=== PATIENT | female | born 1975 | race Caucasian/White ===

== ENCOUNTER 2023-04-16 02:59 | Day surgery (SDC) | payer BC, SELFPAY ==
[2023-04-02 14:02] VITALS: BMI 25.0
[2023-04-16 07:51] VITALS: BP 110/73; PULSE 69; RESP 18; TEMP 36.7; O2SAT 99
[2023-04-16] MEDS: LACTATED RINGERS 1,000 ML 150 ML IV CONT (08:02)
--- NOTE | 2023-04-16 08:34 | WPDANESEPPF ---
Anes - Initial Pre Proc Eval Procedure: Operation Date: 04/16/23 09:00 Proposed Procedures p Screening Colonoscopy - Martín Fortune MD Date/Time: 04/16/23 08:34 Surgeon: Martín Fortune MD Pre Op Diagnosis: neoplasm screening Patient Data Age: 47 Gender: F Height: 1.68 m Weight: 70.4 kg Last Vital Signs Temp 98.1 F 04/16/23 07:51 Pulse 69 04/16/23 07:51 Resp 18 04/16/23 07:51 BP 110/73 04/16/23 07:51 Pulse Ox 99 04/16/23 07:51 O2 Del Method Room Air 04/16/23 07:51 Allergies Allergy/AdvReac Type Severity Reaction Status Date / Time nuts Allergy Intermediate Hives Uncoded 04/16/23 07:50 Home Medications Medication Instructions Recorded Confirmed Type famotidine 20 mg tablet 20 mg PO DAILY 05/21/22 04/02/23 History desogestrel 0.15 mg-ethinyl 1 tablet PO DAILY #90 tabs 03/04/23 04/02/23 Rx estradiol 0.03 mg tablet (Enskyce) mecobalamin (vitamin B12) 1,000 1,000 mcg PO DAILY 03/04/23 04/02/23 History mcg chewable tablet calcium 600 mg capsule 600 mg PO DAILY 04/02/23 04/02/23 History cholecalciferol (vitamin D3) 25 25 mcg PO DAILY 04/02/23 04/02/23 History mcg (1,000 unit) tablet (Vitamin D3) levothyroxine 25 mcg tablet 25 mcg PO DAILY 04/02/23 04/02/23 History Patient hx anesthesia problems: none Family hx anesthesia problems: none Results Review: All pre-operative results and documents have been reviewed as part of the pre-operative evaluation. [facility] Past Medical History Medical History Anal fistula Autoimmune thyroiditis Contact dermatitis HPV (human papilloma virus) infection 2013 Idiopathic urticaria Nontoxic single thyroid nodule 2014 u/s no nodule Family History Family History Father Diabetes mellitus Depression Hypertension Acute myocardial infarction Family history of malignant melanoma Family history of coronary artery disease Sibling Depression Mother Hypertension Family history of diabetes mellitus in first degree relative Family history of malignant melanoma Family history of heart disease in male family member before age 55 Diabetes mellitus Other Family history of cardiovascular disease Family history of malignant neoplasm Social History Social History (Updated 03/04/23 @ 08:32 by Ingrid Ortega MA) Social History: Caffeine- coffee, soda Smoking packs per day: 1 Smoking cigarettes per day: 20.0 Years smoked: 26 Smoking pack-years: 26.00 Smoking status: Former smoker Tobacco type: cigarettes Smoking end date: 12/28/19 Alcohol intake: never Substance use type: does not use Lack of Transportation: No Lack of Food: Never True Current Housing: I Have Housing Concerned About Future Housing: No Difficulty Paying Gas/Electric Bills: No Difficulty Paying for Meds: No Currently Unemployed: No Education: Trade/Vocational Certificate Difficulty w/ Childcare or Family Care: No Living arrangements: with family Spiritual care concerns: No Anes - Eval Final PreProcedure Day of Procedure 04/16/23 08:34 Patient weight: normal Heart: regular rate and rhythm Lungs: clear to auscultation Airway: Mallampati scale class II Neurological: alert and oriented Last oral intake: >/= 8 hours ASA classification: II Emergent: no Anesthetic plan: proceed Anesthesia type and monitoring: general GIVS and standard monitoring Results Review: All pre-operative results and documents have been reviewed as part of the pre-operative evaluation. Informed Consent: The patient's anesthetic plan and its attendant risks and benefits were discussed with the patient/family/POA. Questions were solicited and answers provided to the satisfaction of the patient/family/POA.
--- NOTE | 2023-04-16 08:37 | PM.HPGS ---
History of Present Illness History of Present Illness Consent: Risks, benefits, and alternatives have been discussed and questions answered. Patient agrees to proceed with procedure. Chief complaint: neoplasm screening Narrative: Harini Mobley is a 47 year old female here for first screening colonoscopy Review of Systems Constitutional: Constitutional: Denies headache(s) and Denies weakness Eyes: Eyes: Denies blurry vision ENT: Reports Normal hearing present, Denies headache(s) and Denies neck pain Cardiovascular: Cardiovascular: Denies chest pain and Denies dyspnea Respiratory: Respiratory: Denies dyspnea Gastrointestinal: Gastrointestinal: Reports no additional gastrointestinal complaints Genitourinary: Genitourinary: Denies dysuria Musculoskeletal: Musculoskeletal: Denies neck pain Integumentary/Breasts: Skin/Breast: Denies dry skin Neurologic: Reports Normal hearing present, Denies headache(s) and Denies weakness Psychiatric: Psychiatric: Denies anxiety Endocrine: Endocrine: Denies change in body appearance Hematologic/Lymphatic: Hematologic/Lymphatic: Denies easy bleeding Allergic/Immunologic: Allergic/Immunologic: Denies urticaria PMFSH Past Medical History Medical History Anal fistula Autoimmune thyroiditis Contact dermatitis HPV (human papilloma virus) infection 2013 Idiopathic urticaria Nontoxic single thyroid nodule 2014/s no nodule Family History Family History Father Diabetes mellitus Depression Hypertension Acute myocardial infarction Family history of malignant melanoma Family history of coronary artery disease Sibling Depression Mother Hypertension Family history of diabetes mellitus in first degree relative Family history of malignant melanoma Family history of heart disease in male family member before age 55 Diabetes mellitus Other Family history of cardiovascular disease Family history of malignant neoplasm Social History Social History (Updated 03/04/23 @ 08:32 by Ingrid Ortega MA) Social History: Caffeine- coffee, soda Smoking packs per day: 1 Smoking cigarettes per day: 20.0 Years smoked: 26 Smoking pack-years: 26.00 Smoking status: Former smoker Tobacco type: cigarettes Smoking end date: 12/28/19 Alcohol intake: never Substance use type: does not use Lack of Transportation: No Lack of Food: Never True Current Housing: I Have Housing Concerned About Future Housing: No Difficulty Paying Gas/Electric Bills: No Difficulty Paying for Meds: No Currently Unemployed: No Education: Trade/Vocational Certificate Difficulty w/ Childcare or Family Care: No Living arrangements: with family Spiritual care concerns: No Meds Home Medications and Allergies Home Medications Medication Instructions Recorded Confirmed Type famotidine 20 mg tablet 20 mg PO DAILY 05/21/22 04/02/23 History desogestrel 0.15 mg-ethinyl 1 tablet PO DAILY #90 tabs 03/04/23 04/02/23 Rx estradiol 0.03 mg tablet (Enskyce) mecobalamin (vitamin B12) 1,000 1,000 mcg PO DAILY 03/04/23 04/02/23 History mcg chewable tablet calcium 600 mg capsule 600 mg PO DAILY 04/02/23 04/02/23 History cholecalciferol (vitamin D3) 25 25 mcg PO DAILY 04/02/23 04/02/23 History mcg (1,000 unit) tablet (Vitamin D3) levothyroxine 25 mcg tablet 25 mcg PO DAILY 04/02/23 04/02/23 History Allergies Allergy/AdvReac Type Severity Reaction Status Date / Time nuts Allergy Intermediate Hives Uncoded 04/16/23 07:50 Vital Signs Vital Signs - 24 hr 04/16/23 07:51 Temperature 98.1 F Pulse Rate 69 Respiratory Rate 18 Blood Pressure 110/73 Pulse Oximetry 99 Oxygen Delivery Room Air Exam Const: General: comfortable and no acute distress HENMT: Face/Nose/Sinus: Normal nares present Eyes: General: appearance duc
[2023-04-16 09:03] VITALS: BP 128/108; PULSE 63; RESP 26; O2SAT 99
[2023-04-16 09:13] VITALS: BP 106/62; PULSE 66; RESP 25; O2SAT 100
[2023-04-16 09:23] VITALS: BP 121/68; PULSE 55; RESP 16; O2SAT 100
== END 2023-04-16 09:29 | disposition home or self-care (01) ==
PROVIDERS: PCP Family Medicine; Visit Provider Internal Medicine Gastroenterology
PROC: 0DJD8ZZ Inspection of Lower Intestinal Tract, Via Natural or Artificial Opening Endoscopic (ICD-10-PCS; CPT 45378; principal; 2023-04-16 09:00)
DX: Z12.11 Encounter for screening for malignant neoplasm of colon (principal); D12.0 Benign neoplasm of cecum; K63.5 Polyp of colon; K64.8 Other hemorrhoids; E06.3 Autoimmune thyroiditis; Z87.891 Personal history of nicotine dependence
CPT/HCPCS: 45385; 88305; J7120

== ENCOUNTER 2024-12-16 10:43 | Outpatient (CLI) | payer BC, SELFPAY ==
--- NOTE | ~2024-12-16 | US_ITS ---
EXAMINATION: US thyroid DATE: 12/16/2024 11:02 INDICATION: Nontoxic goiter TECHNIQUE: Multiple ultrasound images of the thyroid were obtained. COMPARISON: None. FINDINGS: The right thyroid lobe measures 6.7 x 2.6 x 2.2 cm. The left thyroid lobe measures 4.9 x 2.3 x 2.0 c m. 1.1 cm solid hypoechoic nodule with ill-defined margins and without echogenic foci in the superio r left thyroid lobe. (TI-RADS 4, moderately suspicious , FNA if >=1.5 cm, annual followup is >=1 cm). There is a second 1.5 cm similar-appearing solid hypoechoic nodule in the mid left thyroid lobe but which is taller than wide (TI-RADS 5, highly suspicious , FNA if >=1.0 cm, annual followup is >0.5 cm ). There are a couple 2.0 cm wider than tall solid hypoechoic TI RADS 4 nodules with smooth to ill-de fined margins and without echogenic foci of in the superior and medial right thyroid lobe. There is a more caudal 2.4 x 2.4 x 1.7 cm TI RADS 4 nodule with similar imaging features in the medial inferior right thyroid lobe. IMPRESSION: 1. Multinodular goiter. Recommend ultrasound-guided fine-needle aspiration of the 1.5 cm TI RADS 5 no dules in the left thyroid lobe and the 2.4 cm Ti RADS 4 nodule in the right thyroid lobe. Reviewed, dictated and finalized at location A. IMPRESSION: 1. Multinodular goiter. Recommend ultrasound-guided fine-needle aspiration of t he 1.5 cm TI RADS 5 nodules in the left thyroid lobe and the 2.4 cm Ti RADS 4 n odule in the right thyroid lobe.
== END 2024-12-16 10:44 | disposition home or self-care (01) ==
LOC: MICIMG 10:43
PROVIDERS: PCP Family Medicine; Visit Provider Family Medicine
DX: E04.2 Nontoxic multinodular goiter (principal)
CPT/HCPCS: 76536

== ENCOUNTER 2025-05-04 12:16 | Outpatient (CLI) | payer BC, SELFPAY ==
--- NOTE | ~2025-05-04 | MM_ITS ---
EXAMINATION: MM screening andi BI w hugo HISTORY: Screening TECHNIQUE: Craniocaudal and mediolateral oblique 3-D tomosynthesis images were obtained and synthetic 2-D images were generated. CAD analysis was submitted and interpreted. COMPARISON: 03/11/2017 BREAST PARENCHYMAL COMPOSITION: There are scattered areas of fibroglandular density. FINDINGS: There is no evidence of suspicious mass, calcification, or architectural distortion to suggest malignancy in either breast. IMPRESSION: 1. No mammographic evidence of malignancy. 2. Recommend routine screening mammography in one year. BI-RADS Category 1: Negative Reviewed, dictated and finalized at location B.
== END 2025-05-04 12:17 | disposition home or self-care (01) ==
PROVIDERS: PCP Family Medicine; Visit Provider Family Medicine
DX: Z12.31 Encounter for screening mammogram for malignant neoplasm of breast (principal)
CPT/HCPCS: 77063; 77067

== ENCOUNTER 2025-06-04 07:52 | Outpatient (CLI) | payer BC, SELFPAY ==
--- NOTE | 2025-06-04 08:00 | ECG_ITS ---
Test Date: 2025-06-04 08:11:49 Measurements Intervals [place] Rate: 68 P: 69 [place]: 179 QRS: 88 QRSD: 81 T: 55 QT: 389 QTc: 416 Interpretive Statements SINUS RHYTHM LOW QRS VOLTAGE IN PRECORDIAL LEADS Electronically Signed On 06-04-2025 10:04:36 CONTENT STRATEGY LEAD by Cameron Luu D.O
--- OUTSIDE RECORDS SUMMARY | 2025-06-04 08:03 | XMS_ITS | Encounter Summary ---
Author Organization [facility] Address 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
--- OUTSIDE RECORDS SUMMARY | 2025-06-04 08:03 | XMS_ITS | Clinical Summary ---
Author Organization [facility] Address [address] 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
== END 2025-06-04 07:53 | disposition home or self-care (01) ==
LOC: ANHSURGERY 07:55
PROVIDERS: PCP Family Medicine; Visit Provider Otolaryngology
DX: Z51.81 Encounter for therapeutic drug level monitoring (principal); Z87.891 Personal history of nicotine dependence
CPT/HCPCS: 93005

== ENCOUNTER 2025-06-15 01:33 | Day surgery (SDC) | payer BC, SELFPAY ==
[2025-06-02 11:33] VITALS: BMI 27.4
--- NOTE | 2025-06-02 13:04 | SUR.PREOP ---
[facility] has started construction of its new state of the art ER which will open Spring 2026. With this, we anticipate parking may be a challenge for some our surgical patients and families. Parking spaces are limited but are available for all Surgical, obstetrics, and ER patients sharing this lot. If you arrive and find you are having a hard time finding a parking space, please note that we understand the challenges, please drive around the hospital and park near Hospital Entrance 1. When you enter this entrance, you can ask a volunteer to direct or take you back to the surgical waiting area to check in. We appreciate everyone?s understanding of these expected challenges while we build for your future. Report to the Outpatient Waiting Room, entrance under the green pavilion located off [address], at time _6AM_ on date _06/15/25_. Planned Procedure Time:_730AM_.? Time changes happen often and if your time is changed the preop area will call you the afternoon before. - You and your visitor will be asked to self-screen and do not enter if you have any COVID symptoms. Please call surgeon if you need to reschedule. - A mask is optional within the hospital at this time. Patients may have clear liquids (water, carbonated beverages, clear teas, apple juice) until 3 hours prior to surgery with a maximum of 20 ounces. - No food from midnight until time of surgery and no smoking, or chewing tobacco (or any form of nicotine). No chewing gum, candy or mints. Take only the following medications with a SIP of water on the morning of surgery: __levothyroxine__ DO NOT STOP ANY OF YOUR OTHER PRESCRIPTION MEDICATIONS PRIOR TO SURGERY EXCEPT THE FOLLOWING Hold all vitamins and supplements for 3 days per anesthesiologist. Medications to discontinue per physician __none___ Date to take last dose__06/11/25___ Please no make-up, nail macedonian, hairspray, perfume, deodorant, or body powder the day of surgery.? No jewelry (including any body piercings) or valuables the day of surgery, leave them at home.? Please take a shower or bath the night before, or the morning of, surgery with an antibacterial soap.? Wear comfortable, loose fitting clothing.? . - Jewelry must be removed prior to entering the operating room.? Rings and piercings that are not removed may be cut off. - The hospital will not accept responsibility for valuables.? - Please leave all valuables, including medications, at home the day of surgery. If you are going home after surgery, a licensed taxi driver must drive you home.? - NO public transportation without another adult if you receive anesthesia. - We recommend that an adult stay with you for 24 hours following discharge. - We also recommend that you do not drive, make important decision, drink alcoholic beverages, or take any drugs that were not prescribed by your health care provider for at least 24 hours after your discharge time. Follow any additional instructions given to you from your surgeon. Telephone instructions given to _Gustavoy__and asked if any additional questions and then verbalized understanding. Patient advised to call surgeon office or pre surgery nurse liaison [phone] if any additional questions.
[2025-06-15] VITALS (13 sets, daily range): BP systolic 118–151; BP diastolic 56–93; PULSE 59–81; RESP 10–20; TEMP 36.2–36.6; O2SAT 96–100
--- OUTSIDE RECORDS SUMMARY | 2025-06-15 03:01 | XMS_ITS | Encounter Summary ---
Author Organization [facility] Address 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
--- OUTSIDE RECORDS SUMMARY | 2025-06-15 03:02 | XMS_ITS | Clinical Summary ---
Author Organization [facility] Address [address] 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
--- NOTE | 2025-06-15 06:59 | WPDANESEPPF ---
Anes - Initial Pre Proc Eval Procedure: Operation Date: 06/15/25 08:30 Proposed Procedures p Total Thyroidectomy with Nerve Monitoring - Jc Le MD Date/Time: 06/15/25 06:59 Surgeon: Jc Le MD Pre Op Diagnosis: hypothyroidism,non toxic multi nodular goiter Patient Data Age: 50 Gender: F Height: 1.68 m Weight: 77.2 kg Allergies Allergy/AdvReac Type Severity Reaction Status Date / Time tree nut Allergy Severe Hives Verified 06/15/25 07:23 Home Medications ?Medication ?Instructions ?Recorded ?Confirmed ?Type famotidine 20 mg tablet 20 mg PO DAILY 05/21/22 06/15/25 History mecobalamin (vitamin B12) 1,000 1,000 mcg PO DAILY 03/04/23 06/15/25 History mcg chewable tablet calcium 600 mg capsule 600 mg PO DAILY 04/02/23 06/15/25 History cholecalciferol (vitamin D3) 25 50 mcg PO DAILY 01/28/24 06/15/25 History mcg (1,000 unit) tablet (Vitamin D3) fluoride (sodium) 1.1 % dental 1 applic PO HS 11/11/24 06/15/25 History paste (PreviDent 5000 Booster Plus) lysine 1,000 mg tablet 1,000 mg PO DAILY 11/11/24 06/15/25 History levothyroxine 100 mcg tablet 100 mcg PO DAILY #30 tabs 03/04/25 06/15/25 Rx (Synthroid) roflumilast 0.15 % topical cream 1 applic topical DAILY PRN 06/02/25 06/02/25 History (Zoryve) dermatitis Patient hx anesthesia problems: none Family hx anesthesia problems: none Results Review: All pre-operative results and documents have been reviewed as part of the pre-operative evaluation. [facility] Past Medical History Medical History (Updated 03/04/25 @ 14:31 by cJ Le MD) Hypothyroidism Nontoxic single thyroid nodule 2014 u/s no nodule Shingles Contact dermatitis Anal fistula Idiopathic urticaria HPV (human papilloma virus) infection 2014 Autoimmune thyroiditis Family History Family History (Reviewed 03/04/25 @ 13:09 by Praveena Medina [facility]) Father Diabetes mellitus Depression Hypertension Acute myocardial infarction Family history of malignant melanoma Family history of coronary artery disease Sibling Depression Mother Hypertension Family history of diabetes mellitus in first degree relative Family history of malignant melanoma Family history of heart disease in male family member before age 55 Diabetes mellitus Other Family history of cardiovascular disease Family history of malignant neoplasm Social History Social History (Reviewed 03/04/25 @ 13:09 by Praveena Medina [facility]) Social History: Caffeine- coffee, soda Smoking packs per day: 1 Smoking cigarettes per day: 20.0 Years smoked: 26 Smoking pack-years: 26.00 Smoking status: Former smoker Tobacco type: cigarettes Smoking end date: 01/30/24 Alcohol intake: current Alcohol use details: rarely Substance use: never Substance use type: does not use Do You Feel Safe in your Home?: Yes Lack of Transportation: No Lack of Food: Never True Current Housing: I Have Housing Concerned About Future Housing: No Difficulty Paying Gas/Electric Bills: No Difficulty Paying for Meds: No Currently Unemployed: No Education: Trade/Vocational Certificate Difficulty w/ Childcare or Family Care: No Living arrangements: with family Spiritual care concerns: No Anes - Eval Final PreProcedure Day of Procedure 06/15/25 06:59 Patient weight: overweight Heart: regular rate and rhythm Lungs: clear to auscultation Airway: Mallampati scale class III Neurological: alert and oriented Last oral intake: >/= 8 hours ASA classification: II Emergent: no Anesthetic plan: proceed Anesthesia type and monitoring: general ETT and standard monitoring Results Review: All pre-operative results and documents have been reviewed as part of the pre-operative evaluation. Informed Consent: The patient's anesthetic plan and its attendant risks and benefits were discussed with the patient/family/POA. Questions were solicited and answers provided to the satisfaction of the patient/family/POA.
[2025-06-15] MEDS: LACTATED RINGERS 1,000 ML 30 ML IV CONT (07:00)
[2025-06-15] MEDS: ACETAMINOPHEN 500 MG TABLET 1000 MG PO ×2 (07:37→20:14)
[2025-06-15 07:43] LABS: BEDSIDEPREGUCG Negative (Negative)
--- NOTE | 2025-06-15 08:31 | PM.IMHP ---
H&P: HPI History of Present Illness Date/Time: 06/15/25 08:31 Chief Complaint: Multinodular goiter Narrative: Patient presents with many year Hx of enlarging goiter. This causes some fullness and anterior neck discomfort with some associated dysphagia. She has bilateral concerning thyroid nodules that have been biopsied showing AUS bilaterally. She has a Hx of hypothyroidism and is on synthroid 100mcg daily. Due to the compressive symptoms and due to her concern for thyroid malignancy. She has elected to proceed with total thyroidectomy. She presents for this today. Review of Systems Review of Systems: All systems reviewed & are unremarkable except as noted in HPI and below PMFSH Past Medical History Medical History (Updated 03/04/25 @ 14:31 by Jc Le MD) Hypothyroidism Nontoxic single thyroid nodule 2014 u/s no nodule Shingles Contact dermatitis Anal fistula Idiopathic urticaria HPV (human papilloma virus) infection 2014 Autoimmune thyroiditis Family History Family History Father Diabetes mellitus Depression Hypertension Acute myocardial infarction Family history of malignant melanoma Family history of coronary artery disease Sibling Depression Mother Hypertension Family history of diabetes mellitus in first degree relative Family history of malignant melanoma Family history of heart disease in male family member before age 55 Diabetes mellitus Other Family history of cardiovascular disease Family history of malignant neoplasm Social History Social History Social History: Caffeine- coffee, soda Smoking packs per day: 1 Smoking cigarettes per day: 20.0 Years smoked: 26 Smoking pack-years: 26.00 Smoking status: Former smoker Tobacco type: cigarettes Smoking end date: 01/30/24 Alcohol intake: current Alcohol use details: rarely Substance use: never Substance use type: does not use Do You Feel Safe in your Home?: Yes Lack of Transportation: No Lack of Food: Never True Current Housing: I Have Housing Concerned About Future Housing: No Difficulty Paying Gas/Electric Bills: No Difficulty Paying for Meds: No Currently Unemployed: No Education: Trade/Vocational Certificate Difficulty w/ Childcare or Family Care: No Living arrangements: with family Spiritual care concerns: No Meds Home Medications and Allergies Home Medications ?Medication ?Instructions ?Recorded ?Confirmed ?Type famotidine 20 mg tablet 20 mg PO DAILY 05/21/22 06/15/25 History mecobalamin (vitamin B12) 1,000 1,000 mcg PO DAILY 03/04/23 06/15/25 History mcg chewable tablet calcium 600 mg capsule 600 mg PO DAILY 04/02/23 06/15/25 History cholecalciferol (vitamin D3) 25 50 mcg PO DAILY 01/28/24 06/15/25 History mcg (1,000 unit) tablet (Vitamin D3) fluoride (sodium) 1.1 % dental 1 applic PO HS 11/11/24 06/15/25 History paste (PreviDent 5000 Booster Plus) lysine 1,000 mg tablet 1,000 mg PO DAILY 11/11/24 06/15/25 History levothyroxine 100 mcg tablet 100 mcg PO DAILY #30 tabs 03/04/25 06/15/25 Rx (Synthroid) roflumilast 0.15 % topical cream 1 applic topical DAILY PRN 06/02/25 06/02/25 History (Zoryve) dermatitis Allergies Allergy/AdvReac Type Severity Reaction Status Date / Time tree nut Allergy Severe Hives Verified 06/15/25 07:23 Vital Signs Vital Signs - 24 hr 06/15/25 06:38 Temperature 36.2 C L Pulse Rate 59 L Respiratory Rate 18 Blood Pressure 118/56 L Pulse Oximetry 97 Oxygen Delivery Room Air Exam Narrative: General: Well developed, well nourished. No apparent distress. Voice strong. Head: Normocephalic, atraumatic. Eyes: Sclerae and conjunctivae clear. Pupils equal and round. Full extraocular motility. Ears: Normal pinnae. Canals clear. Tympanic membranes intact. Middle ear spaces well aerated. Nose: Nasal dorsum is straight. No drainage or crusting at nares. Normal mucosa. Oral Cavity / Oropharynx: Moist mucous membranes. No suspicious lesions. Posterior pharynx is clear without drainage. Neck: Supple, nontender. Large goiter. Lungs: Respirations unlabored. Cardiovascular: Extremities warm and well perfused. Neurologic: Alert, oriented. Moves all extremities. Facial sensation intact to light touch. Face symmetric. Palate elevates symmetrically. Tongue midline. Assessment and Plan Assessment and plan (1) Nontoxic multinodular goiter: Code(s): E04.2 - Nontoxic multinodular goiter Status: Acute Plan OR today for total thyroidectomy. The risks, benefits, and alternatives to surgery were discussed. The risks of pain, bleeding, infection, scarring, no improvement in symptoms, worsening symptoms, recurrent symptoms, hematoma, seroma, poor wound healing, injury to the recurrent laryngeal nerves, injury to the superior laryngeal nerves, temporary or permanent voice changes, airway compromise, temporary or permanent hypocalcemia, and the necessity for thyroid hormone replacement were all reviewed. The patient expressed understanding and wishes to proceed with surgery.
--- NOTE | 2025-06-15 08:35 | WPDHPUPDATE1 ---
History and Physical Update Update Date/Time: 06/15/25 08:35 History and Physical has been reviewed, including an updated exam of the patient. There are NO changes in the patient's condition. Risks, benefits, and alternatives have been discussed and questions answered. Patient agrees to proceed with procedure.
[2025-06-15] MEDS: LIDO 1%/EPINEPHRINE 1:100,000 20 ML VIAL INFILTRATE (09:28)
--- NOTE | 2025-06-15 12:18 | S_PTH ---
PATIENT: Harini Mobley LOC: [facility] U#:[id number] AGE/SX: 50/F ROOM: RE06/15/[address]: Jc Le MD : 1975 BED: DIS: 06/16/2025 SPEC #: [id number] RECD: 06/15/25 12:26 STATUS: [place] REQ #: [id number] TJ: 06/15/25 12:[address]: Jc Le DEPT: [facility] Surgical RECD BY: Adolfo Draper ENTERED: 06/15/25 12:26 SP TYPE: Surgical OTHR DR: Apryl Mar MD Tissues: A - Frozen Section B - Lymph Node C - Thyroid Resection FSA - Frozen Section Procedures: Hematoxylin and Eosin Stain Frozen Section Gross and Microscopic Level 4 Gross and Microscopic Level 5
--- NOTE | 2025-06-15 12:25 | SUR.OPER ---
Left Inferior Parathyroid Candidate for Frozen Section given to YOJANA Hernandez at 1221; David gave specimen to Adolfo at 1225
--- NOTE | 2025-06-15 13:56 | W.PM.PROC2 ---
Procedure Note - Detailed Date of Procedure 06/19/25 Pre-op Diagnosis non toxic multi nodular goiter Post-op Diagnosis Same Procedure Performed Total thyroidectomy Parathyroid reimplantation, same incision Surgeon Jc Le MD Anesthesia General Description of Procedure Patient was identified in the preoperative area, and informed written consent was obtained. The patient was transported to the operating room and placed supine on the operating room table. The anesthesiology service induced general anesthesia and intubated the patient with a NIM tube. The laryngeal nerve monitoring system was set up and was confirmed to be functioning properly. The patient was then positioned, prepped, and draped. A surgical time-out was conducted confirming the patient's identity and the procedure to be performed. A 5cm incision was planned 1cm below the cricoid cartilage in a natural skin crease. 1% lidocaine with epinephrine was injected. The skin was incised with a 15 blade. The incision was carried through the subcutaneous fat and platysma. Subplatysmal flaps were raised superiorly to the level of the thyroid cartilage and inferiorly to the sternal notch. The bilateral sternocleidomastoid muscles were identified laterally. The strap muscles were identified and divided in the midline. Attention was turned to the right thyroid lobe. The strap muscles were lifted off the thyroid. The thyroid was retracted medially and the middle thyroid vein was identified and ligated. The thyroid was then retracted inferiorly to expose the superior pole. Joll's space was bluntly opened. Branches of the superior thyroid artery and veins were ligated using silk ties as close to the thyroid capsule as possible. The external branch of the superior laryngeal nerve was not identified. The inferior pole was then dissected free from surrounding soft tissue and inferior thyroid veins were ligated. At this point, the thyroid was retracted medially and the carotid sheath and strap muscles were retracted laterally to provide good exposure for recurrent laryngeal nerve dissection. With the help of the nerve monitor, the recurrent laryngeal nerve was identified and carefully dissected free from the thyroid as it coursed toward and posteriorly to the cricothyroid joint. Gregg's ligament was then divided and the right thyroid lobe was delivered from the wound bed. During the dissection, the superior and inferior parathyroids were identified and preserved in situ. A paratracheal lymph node was encountered, removed, and sent for permanent pathology. The right thyroid bed was then irrigated and hemostasis was confirmed. The proximal recurrent laryngeal nerve was easily stimulating at 0.5mA. Attention was turned to the left thyroid lobe. The strap muscles were lifted off the thyroid. The thyroid was retracted medially and the middle thyroid vein was identified and ligated. The thyroid was then retracted inferiorly to expose the superior pole. Joll's space was bluntly opened. Branches of the superior thyroid artery and veins were ligated using silk ties as close to the thyroid capsule as possible. The external branch of the superior laryngeal nerve was not identified. The inferior pole was then dissected free from surrounding soft tissue and inferior thyroid veins were ligated. At this point, the thyroid was retracted medially and the carotid sheath and strap muscles were retracted laterally to provide good exposure for recurrent laryngeal nerve dissection. With the help of the nerve monitor, the recurrent laryngeal nerve was identified and carefully dissected free from the thyroid as it coursed toward and posteriorly to the cricothyroid joint. Gregg's ligament was then divided and the left thyroid lobe was delivered from the wound bed. The specimen was oriented with a silk stitch marking the right superior pole and was sent for permanent pathology. During the dissection, the superior parathyroid was identified and preserved. However, the inferior parathyroid appeared devascularized. This was excised and a small portion of this was sent for frozen pathology which showed benign parathyroid tissue. The remainder of the parathyroid was cut into 1mm pieces and reimplanted in a pocket of the left sternocleidomastoid. The pocket was closed with 3-0 Vicryl suture. The left thyroid bed was then irrigated and hemostasis was confirmed. The proximal recurrent laryngeal nerve was easily stimulating at 0.5mA. Ankit powder was then placed within the wound bed followed by a 15Fr round drain. The strap muscles were reapproximated using 3-0 Vicryl suture leaving a drainage hole inferiorly. The platysma was reapproximated with 3-0 Vicryl suture. The skin was closed using 4-0 Monocryl suture in a running subcuticular fashion. Mastisol and steri-strips were placed over the incision. The patient was then returned to the anesthesiology service. She was awoken, extubated, and transferred to the postoperative recovery area in stable condition. There were no immediate complications. Estimated Blood Loss 100
[2025-06-15] MEDS: fentaNYL CITRATE INJ (*CRX) 100 MCG/2 ML VIAL 25 MCG IV PUSH ×2 (15:10→15:14)
[2025-06-15 15:18] LABS: Alanine Aminotransferase 11 U/L (6-35); Albumin Level 4.0 g/dL (3.5-5.1); Alkaline Phosphatase 81 U/L (38-126); Anion Gap 5 mmol/L (4-12); Aspartate Amino Transferase 26 U/L (14-36); Bilirubin,Total 0.5 mg/dL (0.2-1.3); Blood Urea Nitrogen 11 mg/dL (7-17); Calcium 9.0 mg/dL (8.4-10.2); Carbon Dioxide 24 mmol/L (22-30); Chloride 104 mmol/L (98-107); Estimated CRCL calculation 75 ml/min; Estimated Glomerular Filt Rate > 60; Glucose 137 mg/dL (65-110); Potassium 4.9 mmol/L (3.4-5.0); Sodium 133 mmol/L (137-145); Total Protein 7.2 g/dL (6.3-8.2)
[2025-06-15] MEDS: MIDAZOLAM HCL (*CRX) 2 MG/2 ML VIAL IV PUSH (15:27)
[2025-06-15 15:41] LABS: Parathyroid Intact < 14.5 pg/mL (14.5-75.2)
--- NOTE | 2025-06-15 16:30 | ADMGEN ---
This patient, Harini Mobley, was admitted to Medical Room 248-01. Patient/family oriented to hospital policies and general routines including ID bracelet, bed and alarms, visiting hours, pain management, procedures, bathroom and other care routines, personal items, smoking policy, room service/diet, and visiting hours. Information on how to activate the Rapid Response Team has been discussed. Patient/Family are encouraged to report perceived risks to care and to ask questions if they do not understand what they are told or what they should do.
[2025-06-15] MEDS: oxyCODONE HCL (*CRX) 5 MG TAB IR PO (17:23)
[2025-06-15] MEDS: ONDANSETRON INJ 4 MG/2 ML VIAL IV PUSH (17:24)
[2025-06-15 18:32] LABS: Anion Gap 6 mmol/L (4-12); Blood Urea Nitrogen 11 mg/dL (7-17); Calcium 8.6 mg/dL (8.4-10.2); Carbon Dioxide 25 mmol/L (22-30); Chloride 103 mmol/L (98-107); Estimated CRCL calculation 71 ml/min; Estimated Glomerular Filt Rate > 60; Glucose 141 mg/dL (65-110); Potassium 4.4 mmol/L (3.4-5.0); Sodium 134 mmol/L (137-145)
[2025-06-15] MEDS: CALCIUM CARBONATE (TUMS) 500 MG (200 MG ELEMENTAL) 800 MG PO (18:46)
[2025-06-15] MEDS: PROCHLORPERAZINE EDISYLATE 10 MG/2 ML VIAL IV PUSH (19:35)
[2025-06-15] MEDS: FAMOTIDINE 20 MG TABLET PO (20:14)
[2025-06-15] MEDS: DOCUSATE SODIUM 100 MG CAPSULE PO (20:14)
[2025-06-15 22:04] LABS: Anion Gap 5 mmol/L (4-12); Blood Urea Nitrogen 11 mg/dL (7-17); Calcium 8.5 mg/dL (8.4-10.2); Carbon Dioxide 26 mmol/L (22-30); Chloride 101 mmol/L (98-107); Estimated CRCL calculation 75 ml/min; Estimated Glomerular Filt Rate > 60; Glucose 152 mg/dL (65-110); Potassium 4.2 mmol/L (3.4-5.0); Sodium 132 mmol/L (137-145)
[2025-06-16 00:27] VITALS: BP 115/67; PULSE 62; RESP 14; TEMP 36.7; O2SAT 97
[2025-06-16] MEDS: ACETAMINOPHEN 500 MG TABLET 1000 MG PO ×2 (01:01→08:57)
[2025-06-16] MEDS: PROCHLORPERAZINE EDISYLATE 10 MG/2 ML VIAL IV PUSH (01:02)
[2025-06-16] MEDS: CALCIUM CARBONATE (TUMS) 500 MG (200 MG ELEMENTAL) 800 MG PO ×2 (01:02→09:04)
[2025-06-16 04:39] VITALS: BP 129/62; PULSE 71; RESP 16; TEMP 36.9; O2SAT 97
[2025-06-16] MEDS: LEVOTHYROXINE SODIUM 100 MCG TABLET PO (05:10)
[2025-06-16 07:12] LABS: Anion Gap 5 mmol/L (4-12); Blood Urea Nitrogen 10 mg/dL (7-17); Calcium 8.8 mg/dL (8.4-10.2); Carbon Dioxide 28 mmol/L (22-30); Chloride 102 mmol/L (98-107); Estimated CRCL calculation 72 ml/min; Estimated Glomerular Filt Rate > 60; Glucose 109 mg/dL (65-110); Potassium 3.7 mmol/L (3.4-5.0); Sodium 135 mmol/L (137-145)
[2025-06-16 08:00] VITALS: BP 122/63; PULSE 62; RESP 14; TEMP 36.3; O2SAT 97
[2025-06-16 12:16] VITALS: BP 126/63; PULSE 75; RESP 14; TEMP 36.3; O2SAT 98
--- NOTE | 2025-06-16 14:01 | WPDPN ---
Progress Note: A&P Assessment and Plan (1) Nontoxic multinodular goiter: Code(s): E04.2 - Nontoxic multinodular goiter Status: Acute Plan Doing well postoperatively. Will discharge patient with her neck drain. Instructions provided to patient on drain care and wound care. Will also discharge patient on calcium taper. She does not require any pain medication for discharge. She will follow-up for drain removal in a few days. Will follow-up pathology results. Subjective Date/time seen: 06/16/25 14:01 Interval history: Patient has done well overnight and this morning. Afebrile, vitals stable. Labs stable. Drain output within reason. Pain controlled. Tolerating PO. Ambulating without difficulty. Review of Systems Review of Systems: All systems reviewed & are unremarkable except as noted in HPI and below Exam Narrative: General: Well developed, well nourished. No apparent distress. Voice strong. Head: Normocephalic, atraumatic. Eyes: Sclerae and conjunctivae clear. Pupils equal and round. Full extraocular motility. Ears: Normal pinnae. Nose: Nasal dorsum is straight. No drainage or crusting at nares. Normal mucosa. Oral Cavity / Oropharynx: Moist mucous membranes. No suspicious lesions. Posterior pharynx is clear without drainage. Neck: Supple, nontender. No hematoma. Incision covered with steri strips. Drain with serosanguineous drainage. Lungs: Respirations unlabored. Cardiovascular: Extremities warm and well perfused. Neurologic: Alert, oriented. Moves all extremities. Facial sensation intact to light touch. Face symmetric. Palate elevates symmetrically. Tongue midline. Objective Data Vital Signs Vital Signs: Vital Signs - 24 hr 06/15/25 14:12 06/15/25 14:15 06/15/25 14:30 Temperature 36.6 C Pulse Rate 81 74 66 Respiratory Rate 16 20 Blood Pressure 145/93 H 151/86 H 148/83 H Pulse Oximetry 100 100 100 Oxygen Delivery Simple Face Mask Simple Face Mask Simple Face Mask Oxygen Flow Rate 8 8 8 06/15/25 14:45 06/15/25 15:15 06/15/25 15:30 Temperature Pulse Rate 68 67 67 Respiratory Rate 10 L 16 15 Blood Pressure 138/82 141/78 H 136/74 Pulse Oximetry 97 96 97 Oxygen Delivery Room Air Room Air Room Air Oxygen Flow Rate 06/15/25 15:45 06/15/25 16:20 06/15/25 16:35 Temperature 36.4 C L 36.4 C Pulse Rate 63 67 63 Respiratory Rate 16 16 16 Blood Pressure 137/78 142/67 H 140/80 Pulse Oximetry 98 96 96 Oxygen Delivery Room Air Oxygen Flow Rate 06/15/25 17:05 06/15/25 18:05 06/15/25 20:17 Temperature 36.4 C L 36.4 C L 36.6 C Pulse Rate 61 69 68 Respiratory Rate 16 16 16 Blood Pressure 136/76 137/68 145/79 H Pulse Oximetry 97 99 97 Oxygen Delivery Oxygen Flow Rate 06/16/25 00:27 06/16/25 04:39 06/16/25 08:00 Temperature 36.7 C 36.9 C 36.3 C L Pulse Rate 62 71 62 Respiratory Rate 14 16 14 Blood Pressure 115/67 129/62 122/63 Pulse Oximetry 97 97 97 Oxygen Delivery Oxygen Flow Rate 06/16/25 09:00 06/16/25 12:16 Temperature 36.3 C L Pulse Rate 75 Respiratory Rate 14 Blood Pressure 126/63 Pulse Oximetry 98 Oxygen Delivery Room Air Oxygen Flow Rate Intake/Output Intake/Output: Intake & Output 06/13/25 06/14/25 06/15/25 06/16/25 23:59 23:59 23:59 23:59 Intake Total 120 430 Output Total 920 2747 Ltyphav -[id number] -[id number] Meds/Results Medications: Active Medications Generic Name Dose Route Start Last Admin Trade Name Freq PRN Reason Stop Dose Admin Acetaminophen 1,000 mg 06/15/25 17:11 06/16/25 08:57 Acetaminophen 500 Mg Tablet PO 1,000 mg Q6H PRN Administration Mild Pain (1-3) or Fever Calcium Carbonate 800 mg 06/16/25 09:00 06/16/25 09:04 Calcium Carbonate (Tums) 500 Mg (200 Mg Elemental) PO 800 mg Q6H MATTY Administration Docusate Sodium 100 mg 06/15/25 21:00 06/16/25 08:59 Docusate Sodium 100 Mg Capsule PO Not Given Q12HR MATTY Enoxaparin Sodium 40 mg 06/16/25 09:00 06/16/25 08:58 Enoxaparin 40 Mg/0.4 Ml Syringe SUB-Q Not Given DAILY MATTY Famotidine 20 mg 06/15/25 17:11 06/15/25 20:14 Famotidine 20 Mg Tablet PO 20 mg Q12HR PRN Administration Reflux Levothyroxine Sodium 100 mcg 06/16/25 06:30 06/16/25 05:10 Levothyroxine Sodium 100 Mcg Tablet PO 100 mcg DAILY@0630 MATTY Administration Ondansetron HCl 4 mg 06/15/25 17:11 06/15/25 17:24 Ondansetron Inj 4 Mg/2 Ml Vial IV PUSH 4 mg Q4H PRN Administration Nausea And Vomiting Oxycodone HCl 5 mg 06/15/25 17:11 06/15/25 17:23 Oxycodone Hcl (*Crx) 5 Mg Tab Ir PO 5 mg Q4H PRN Administration Pain Rated 7-10 Prochlorperazine Edisylate 10 mg 06/15/25 19:15 06/16/25 01:02 Prochlorperazine Edisylate 10 Mg/2 Ml Vial IV PUSH 10 mg Q6H PRN Administration Nausea And Vomiting Labs Labs: Laboratory Results - last 24 hr 06/15/25 06/15/25 06/15/25 14:53 18:15 21:48 Sodium 133 L 134 L 132 L Potassium 4.9 4.4 4.2 Chloride 104 103 101 Carbon Dioxide 24 25 26 Anion Gap 5 6 5 BUN 11 11 11 Creatinine 0.84 0.89 0.84 Estim Creat Clear Calc 75 71 75 Estimated GFR > 60 > 60 > 60 Glucose 137 H 141 H 152 H Calcium 9.0 8.6 8.5 Total Bilirubin 0.5 AST 26 ALT 11 Alkaline Phosphatase 81 Total Protein 7.2 Albumin 4.0 PTH Intact < 14.5 L 06/16/25 06:38 Sodium 135 L Potassium 3.7 Chloride 102 Carbon Dioxide 28 Anion Gap 5 BUN 10 Creatinine 0.88 Estim Creat Clear Calc 72 Estimated GFR > 60 Glucose 109 Calcium 8.8 Total Bilirubin AST ALT Alkaline Phosphatase Total Protein Albumin PTH Intact
[2025-06-16 16:08] LABS: Calcium, Ionized 5.1 mg/dL (4.5-5.6)
== END 2025-06-16 15:20 | disposition home or self-care (01) ==
LOC: ANHSURGERY 06:28 → ANH2MED 17:01
PROVIDERS: PCP Family Medicine; Visit Provider Otolaryngology
PROC: (CPT 60240; principal; 2025-06-15 08:30)
DX: E04.2 Nontoxic multinodular goiter (principal); E06.3 Autoimmune thyroiditis; Z87.891 Personal history of nicotine dependence
CPT/HCPCS: 60240; 60512; 36415; 80048; 80053; 82330; 83970; 88305; 88307; 88331; A9270; J0330; J0780; J1100; J2003; J2004; J2250; J2405; J2704; J3010; J7120

== ENCOUNTER 2025-07-05 09:00 | Outpatient (CLI) | payer BC, SELFPAY ==
[2025-07-05 19:03] LABS: Alanine Aminotransferase 13 U/L (6-35); Albumin Level 4.1 g/dL (3.5-5.1); Alkaline Phosphatase 76 U/L (38-126); Anion Gap 5 mmol/L (4-12); Aspartate Amino Transferase 48 U/L (14-36); Bilirubin,Total 0.5 mg/dL (0.2-1.3); Blood Urea Nitrogen 13 mg/dL (7-17); Calcium 9.2 mg/dL (8.4-10.2); Carbon Dioxide 28 mmol/L (22-30); Chloride 103 mmol/L (98-107); Estimated Glomerular Filt Rate 55; Glucose 65 mg/dL (65-110); Potassium 4.5 mmol/L (3.4-5.0); Sodium 136 mmol/L (137-145); Total Protein 7.2 g/dL (6.3-8.2)
[2025-07-05 20:08] LABS: Parathyroid Intact < 14.5 pg/mL (14.5-75.2)
== END 2025-07-05 09:01 | disposition home or self-care (01) ==
LOC: ANHGOSHLAB 09:00
PROVIDERS: PCP Family Medicine; Visit Provider Otolaryngology
DX: E83.51 Hypocalcemia (principal)
CPT/HCPCS: 36415; 80053; 83970

== ENCOUNTER 2025-07-26 09:19 | Outpatient (CLI) | payer BC, SELFPAY ==
--- OUTSIDE RECORDS SUMMARY | 2025-07-26 09:35 | XMS_ITS | Clinical Summary ---
Author Organization [facility] Address [address] 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
--- OUTSIDE RECORDS SUMMARY | 2025-07-26 09:35 | XMS_ITS | Encounter Summary ---
Author Organization [facility] Address 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
[2025-07-26 13:52] LABS: Alanine Aminotransferase 11 U/L (6-35); Albumin Level 4.2 g/dL (3.5-5.1); Alkaline Phosphatase 80 U/L (38-126); Anion Gap 3 mmol/L (4-12); Aspartate Amino Transferase 49 U/L (14-36); Bilirubin,Total 0.5 mg/dL (0.2-1.3); Blood Urea Nitrogen 11 mg/dL (7-17); Calcium 9.5 mg/dL (8.4-10.2); Carbon Dioxide 28 mmol/L (22-30); Chloride 105 mmol/L (98-107); Estimated Glomerular Filt Rate 58; Glucose 86 mg/dL (65-110); Potassium 4.7 mmol/L (3.4-5.0); Sodium 136 mmol/L (137-145); Total Protein 7.6 g/dL (6.3-8.2)
[2025-07-26 14:07] LABS: Parathyroid Intact < 14.5 pg/mL (14.5-75.2)
[2025-07-26 14:29] LABS: Thyroid Stimulating Hormone 6.590 uIU/mL (0.465-4.680)
== END 2025-07-26 09:20 | disposition home or self-care (01) ==
LOC: ANHGOSHLAB 09:19
PROVIDERS: PCP Family Medicine; Visit Provider Otolaryngology
DX: E83.51 Hypocalcemia (principal); E03.9 Hypothyroidism, unspecified
CPT/HCPCS: 36415; 80053; 83970; 84443; 86376